=== PATIENT | female | born 1985 | race Caucasian/White ===

== ENCOUNTER 2021-05-07 18:12 | Outpatient (CLI) | payer OTHER ==
--- NOTE | 2021-05-17 02:21 | XRAY Report ---
PROCEDURE: Foot 3 View RT INDICATIONS: CONTUSION OF R FOOT TECHNIQUE: 3 views of the foot were acquired. Images became available for interpretation on 05/16/20. COMPARISON: None FINDINGS: Bones: There is mildly displaced oblique fractures through the midportion of the third and fourth pro ximal phalanx. There is no intra-articular extension. No suspicious bony lesions. Soft tissues: No tibiotalar joint effusion. Achilles tendon appears normal. IMPRESSION: Mildly displaced third and fourth proximal phalanx fractures. Reviewed by: Irasema Hoffman MD on 05/17/2021 1:28 AM PDT Approved by: Irasema Hoffman MD on 05/17/2021 1:28 AM PDT Station ID: [id number]
== END 2021-05-07 23:59 ==
LOC: DI.N 18:12
PROVIDERS: ATTEND Physician Assistant Medical
DX: S90.31XA Contusion of right foot, initial encounter (principal); S92.511A Displaced fracture of proximal phalanx of right lesser toe(s), initial encounter for closed fracture

== ENCOUNTER 2021-05-17 11:09 | Outpatient (CLI) | payer OTHER ==
--- NOTE | 2021-05-17 09:59 | XRAY Report ---
PROCEDURE: Foot 3 View RT INDICATIONS: FRACTURE OF PROXIMAL PHALANX OF RIGHT TOE TECHNIQUE: 3 views of the foot were acquired. COMPARISON: 05/07/2021 FINDINGS: Unchanged alignment of oblique fractures of the third and fourth toe proximal phalanges. There is mil d interval healing sclerosis. There is pes planus. No hallux valgus. IMPRESSION: Unchanged alignment of third and fourth toe fractures. Pes planus Reviewed by: Jesus Gutierrez MD on 05/17/2021 9:58 AM PDT Approved by: Jesus Gutierrez MD on 05/17/2021 9:58 AM PDT Station ID: [id number]
== END 2021-05-17 11:10 | disposition home or self-care (01) ==
LOC: DI.N 11:09
PROVIDERS: ATTEND Physician Assistant
DX: S92.501D Displaced unspecified fracture of right lesser toe(s), subsequent encounter for fracture with routine healing (principal)

== ENCOUNTER 2021-07-03 17:42 | Outpatient (CLI) | payer OTHER ==
--- NOTE | 2021-07-03 17:15 | XRAY Report ---
PROCEDURE: Foot 3 View RT INDICATIONS: DISPLACED FX OF PROXIMAL PHALANX OF R 5TH TOE TECHNIQUE: 3 views of the foot were acquired. COMPARISON: 05/17/2021 FINDINGS: Bones: Oblique fractures of the right third and fourth proximal phalanges redemonstrated. Callus form ation noted at the fracture site. Third and fourth proximal phalange fractures are stable in alignmen t. No suspicious bony lesions. Soft tissues: No tibiotalar joint effusion. Achilles tendon appears normal. IMPRESSION: Right third and fourth proximal phalange fractures. Reviewed by: Anamaria Campbell MD, PhD on 07/03/2021 5:14 PM PST Approved by: Anamaria Campbell MD, PhD on 07/03/2021 5:14 PM PST Station ID: [id number]
== END 2021-07-03 23:59 | disposition home or self-care (01) ==
LOC: DI.N 17:42
PROVIDERS: ATTEND Physician Assistant
DX: S92.511D Displaced fracture of proximal phalanx of right lesser toe(s), subsequent encounter for fracture with routine healing (principal)

== ENCOUNTER 2022-10-18 08:00 | Outpatient (CLI) | payer OTHER ==
[2022-10-18 22:01] LABS: BACTERIAL VAGINOSIS DNA NEGATIVE (NEGATIVE); CANDIDA KRUSEI DNA NEGATIVE (NEGATIVE)
[2022-10-18 22:02] LABS: CANDIDA GLABRATA DNA NEGATIVE (NEGATIVE); CANDIDA GROUP DNA NEGATIVE (NEGATIVE); TRICHOMONAS VAGINALIS DNA NEGATIVE (NEGATIVE)
== END 2022-10-18 23:59 | disposition home or self-care (01) ==
LOC: LAB.WC 08:00
PROVIDERS: ATTEND Nurse Practitioner
DX: N89.8 Other specified noninflammatory disorders of vagina (principal)
CPT/HCPCS: 81514

== ENCOUNTER 2023-10-16 15:15 | Outpatient (CLI) | payer OTHER ==
--- NOTE | 2023-10-16 21:42 | XRAY Report ---
PROCEDURE: Foot 3+V RT INDICATIONS: FOOT PAIN, RIGHT TECHNIQUE: 3 views of the foot were acquired. COMPARISON: 07/03/2021 FINDINGS: Bones: No fractures or dislocations. Chronic deformity is healing, slightly displaced third and four th proximal phalanx fractures. No suspicious bony lesions. Soft tissues: No tibiotalar joint effusion. Achilles tendon appears normal. IMPRESSION: No acute abnormality. Healed third and fourth proximal phalanx fractures. Reviewed by: Stephanie Lucas MD on 10/16/2023 9:41 PM PDT Approved by: Stephanie Lucas MD on 10/16/2023 9:41 PM PDT Station ID: [id number]
== END 2023-10-16 15:30 | disposition home or self-care (01) ==
LOC: DI.N 15:15
PROVIDERS: ATTEND Family Medicine
DX: M79.671 Pain in right foot (principal)